=== PATIENT | male | born 1985 | race Caucasian/White ===

== ENCOUNTER → 2020-11-05 | Outpatient (CLI) | payer BC ==
--- NOTE | 2020-11-08 08:12 | MRI ---
EXAM: Lumbar Spine w/o Contrast CLINICAL HISTORY: Lumbar disc disorder COMPARISON STUDY: None TECHNICAL: Multiplanar multisequence noncontrast MRI images of the lumbar spine. FINDINGS: The lumbar vertebral bodies are in appropriate anatomic alignment. No visible fracture and no bone marrow edema/inflammation. The conus medullaris has normal configuration. L1-2: No disc herniation, canal stenosis or nerve root impingement. There are mild degenerative changes of the facets. L2-3: Mild disc height loss. An annular bulge measures 3 mm with flattening of the ventral thecal sac and the central spinal canal measures 12 mm. Nerve roots exit without impingement. Mild facet arthropathy. L3-4: No disc herniation, canal stenosis or nerve root impingement. Moderate bilateral facet arthropathy is present. L4-5: There is a large posterior left paracentral/lateral disc herniation. The posterior herniated disc material measures 9 mm AP by 17 mm in length by 18 mm transverse. There is flattening of the left ventral thecal sac and impingement of the left L5-S1 nerve root. There is moderate stenosis of the left exiting foramina and contact of the left L4-5 nerve root. Moderate bilateral facet arthropathy. L5-S1: Disc desiccation and mild disc height loss. A central disc protrusion measures 5 mm and indents the thecal sac without causing canal stenosis. The central spinal canal measures 14 mm. A right lateral disc bulge is less than 3 mm left lateral disc bulge measures 5 mm. There is contact of the left exiting nerve root. Moderate bilateral facet arthropathy is present. IMPRESSION: 1. 9 x 17 x 18 mm left paracentral/lateral L4-5 disc herniation. Impingement of the left L5-S1 nerve root and left L4-5 nerve root. 2. 5 mm left lateral disc bulge contacts the left L5-S1 nerve root. Electronically signed by: Tarun Mack MD 11/08/2020 8:11 AM [facility]
== END ==
LOC: MRI 13:55
PROVIDERS: ATTEND Family Medicine
DX: M51.06 Intervertebral disc disorders with myelopathy, lumbar region (principal); M51.87 Other intervertebral disc disorders, lumbosacral region